=== PATIENT | male | born 1970 | race African-American/Black ===

== ENCOUNTER 2021-03-27 18:26 | Emergency (ER) | payer BC, SELFPAY ==
--- NOTE | ~2021-03-27 | XR_ITS ---
EXAMINATION:XR cervical spine 4-5V DATE: 03/27/2021 19:03 INDICATION: Neck pain TECHNIQUE: AP, lateral, lateral swimmers and odontoid views of the cervical spine are provided. COMPARISON: None FINDINGS: Alignment is normal. The odontoid is intact. No fracture is identified. The vertebral body heights are maintained. There is mild loss of intervertebral disc space height at C5-6. Small degener ative osteophytes project from the anterior endplates of multiple vertebral bodies. 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 Prevertebral soft tissues are normal. IMPRESSION: 1. Mild cervical spondylosis without acute findings. Reviewed, dictated and finalized at location F. T ADVISOR
[2021-03-27 18:38] VITALS: BP 117/70; PULSE 81; RESP 14; TEMP 37.6; O2SAT 97
--- NOTE | 2021-03-27 19:37 | ED.NECK ---
HPI - Neck Pain/Injury General Chief Complaint: Neck Pain/Injury Stated Complaint: pain in back of neck and right shoulder Time Seen by Provider: 03/27/21 19:37 Source: patient and family History of Present Illness HPI Narrative: Patient presents with right-sided neck pain. Patient is unsure of the injury but states he twists and turns and lifts quite a bit of heavy objects at work. Patient denies any radiation of pain no numbness and tingling. Patient has not taken anything recently for his symptoms. Related Data Allergies Allergy/AdvReac Type Severity Reaction Status Date / Time No Known Allergies Allergy Verified 03/27/21 19:09 Review of Systems Review of Systems: CONSTITUTIONAL: Denies fever, chills, or sweats. EYES: Denies visual changes, redness, or discharge. ENT: Denies rhinorrhea, congestion, sore throat, or otalgia. CARDIOVASCULAR: Denies chest pain, palpitations, or edema. RESPIRATORY: Denies cough or dyspnea. GASTROINTESTINAL: Denies abdominal pain, nausea, vomiting, or diarrhea. GENITOURINARY: Denies dysuria or hematuria. SKIN: Denies rash or itching. MUSCULOSKELETAL: Denies back pain, joint pain, or myalgia. Right-sided neck pain NEUROLOGIC: Denies headache, numbness, or weakness. PSYCHIATRIC: Denies anxiety or depression. PMFSH Comments At time of signature, agree with nursing past medical, surgical, social and family history. There is no relevant family history pertinent to the presenting complaint Exam Narrative: GENERAL: Well-appearing, well-nourished, and in no acute distress. HEAD: Normocephalic, atraumatic. EYES: PERRLA and EOMI. ENT: Nares clear, no rhinorrhea or epistaxis. Mucous membranes moist. NECK: Supple. CHEST: Clear to auscultation. No respiratory distress. HEART: Regular rate and rhythm. No murmur heard. Normal peripheral pulses. ABDOMEN: Soft, nontender, nondistended, normal active bowel sounds. EXTREMITIES: Normal range of motion. No edema. NO PARASPINAL TENDERNESS, NO VERTEBRAL TENDERNESS OR STEP OFFS. NO SWELLING. NORMAL ROM OF NECK. NORMAL UE STRENGTH AND SENSATION NO SWELLING, BRUISING, SKIN CHANGES. SKIN INTACT. NORMAL RADIAL PULSE. NO DEFORMITY OF SHOULDER. NO CLAVICLE TENDERNESS. NORMAL UE SENSATION AND STRENGTH. ROM EVALUATED - CAN RAISE UE ABOVE SHOULDER, CAN ABDUCT, ADDUCT, EXTERNALLY ROTATE AND CAN INTERNALLY ROTATE AND RAISE THUMB UP THE SPINE. NO AC JOINT TENDERNESS, CAN CROSS ARM HORIZONTALLY AND PLACE HAND ON OPPOSITE SHOULDER, NO WINGING OF THE SCAPULA. SUPRASPINATUS APPEARS NORMAL WITH ARMS STRAIGHT OUT AT 30 DEGREES, THUMB DOWN , CAN ABDUCT AGAINST RESISTANCE. SKIN: Warm, dry, no rash. NEURO: No focal deficits. Alert and oriented x3. Bess Coma Scale Eye Opening: Spontaneous 4 Bess Coma Scale Motor: Obeys Commands 6 [place] Coma Scale Verbal: Oriented 5 [place] Coma Scale Total 15 Course Course Level of Care: Express Care Visit Vital Signs Vital signs: Vital Signs Temperature 37.6 C 03/27/21 18:38 Pulse Rate 81 03/27/21 18:38 Respiratory Rate 14 03/27/21 18:38 Blood Pressure 117/70 03/27/21 18:38 Pulse Oximetry 97 03/27/21 18:38 Temperature 37.6 C 03/27/21 18:38 Pulse Rate 81 03/27/21 18:38 Respiratory Rate 14 03/27/21 18:38 Blood Pressure 117/70 03/27/21 18:38 Pulse Oximetry 97 03/27/21 18:38 Critical dx considered and discussed with pt. Educated patient on red flag s/s and to go to ED if s/s occur. Discussed with pt when to return to [facility] or primary care provider. Pt gave verbal undertstanding, all questions were answered, and pt was agreeable to plan Discussed with patient need to follow-up with primary care provider for orthopedic referral for further evaluation treatment of right-sided neck pain. Discussed red flags and when to go to ER. Patient states he feels much better after Toradol injection and is ready to go home MDM - Neck Pain/Injury Differential Diagnosis Differential diagnosis: Likely disc diso
[2021-03-27] MEDS: KETOROLAC (*BKC) 60 MG/2 ML VIAL IM (19:49)
== END 2021-03-27 20:10 | disposition home or self-care (01) ==
PROVIDERS: Emergency Provider Nurse Practitioner Family; PCP Family Medicine
DX: S16.1XXA Strain of muscle, fascia and tendon at neck level, initial encounter (principal); X58.XXXA Exposure to other specified factors, initial encounter; M47.812 Spondylosis without myelopathy or radiculopathy, cervical region
CPT/HCPCS: 72050; 96372; 99213; G0463; J1885